=== PATIENT | female | born 1960 ===

== ENCOUNTER 2021-11-10 06:33 | Day surgery (SDC) | payer BC ==
[~2021-11-10 06:33] MED LIST: Lactated Ringers 1,000 ML IV SCH; Sodium Chloride 0.9% 10 ML Syringe FLUSH PRN; Sodium Chloride 0.9% 2.5 ML Syringe FLUSH PRN; Sodium Chloride 0.9% 20 ML SDV IV PRN
[2021-11-10] MEDS ORDERED: fentaNYL 100 MCG/2 ML SDV ONE (07:33)
[2021-11-10] MEDS ORDERED: Lidocaine 2% 5 ML SDV ONE (07:33)
[2021-11-10] MEDS ORDERED: Propofol 200 MG/20 ML SDV ONE (07:33)
[2021-11-10 10:07] VITALS: BP 139/86; PULSE 51
== END 2021-11-10 09:44 | disposition home or self-care (01) ==
LOC: MW.SDS 06:33
PROVIDERS: ATTEND Surgery
DX: Z12.11 Encounter for screening for malignant neoplasm of colon (principal); D12.4 Benign neoplasm of descending colon; D12.5 Benign neoplasm of sigmoid colon; D12.8 Benign neoplasm of rectum; K57.30 Diverticulosis of large intestine without perforation or abscess without bleeding; E03.9 Hypothyroidism, unspecified; G43.909 Migraine, unspecified, not intractable, without status migrainosus; E66.9 Obesity, unspecified; Z86.010 Personal history of colon polyps; Z80.0 Family history of malignant neoplasm of digestive organs; Z79.890 Hormone replacement therapy; Z87.09 Personal history of other diseases of the respiratory system; Z98.890 Other specified postprocedural states; Z88.3 Allergy status to other anti-infective agents; Z91.048 Other nonmedicinal substance allergy status; Z68.36 Body mass index [BMI] 36.0-36.9, adult
CPT/HCPCS: 45380; 45385; J2704; J3010; J7120; 00812